=== PATIENT | female | born 1980 | race Caucasian/White ===

== ENCOUNTER 2016-08-21 15:56 | Emergency (ER) | payer OTHER ==
[2016-08-21 16:09] VITALS: BP 127/77
--- NOTE | 2016-08-21 16:20 | ED Physician Documentation ---
PD HPI FEMALE - Stated complaint Stated Complaint: post op ABD PX - Chief complaint Chief Complaint: Abd Pain - History obtained from History obtained from: Patient - History of Present Illness Timing - onset: Yesterday Timing - duration: Days (1) Timing - details: Gradual onset, Still present Associated symptoms: Dysuria, Urinary frequency Recently seen: Surgery (hysterectomy at [facility] 2 days ago.) Review of Systems Constitutional: denies: Fever, Chills Nose: denies: Rhinorrhea / runny nose, Congestion Throat: denies: Sore throat Cardiac: denies: Chest pain / pressure Respiratory: denies: Dyspnea, Cough PD PAST MEDICAL HISTORY - Past Medical History Cardiovascular: None Respiratory: None Neuro: None Endocrine/Autoimmune: None - Present Medications Home Medications: Ambulatory Orders Medication Instructions Recorded Confirmed Dextroamphetamine/Amphetamine 1 tab TID 08/21/16 08/23/16 [Adderall 15 mg Tablet] Ibuprofen 600 mg TID PRN 08/21/16 08/23/16 Phenazopyridine [Pyridium] 200 mg PO TID PRN #15 tablet 08/21/16 08/23/16 Sulfamethox/Trimeth 800/160 1 each PO BID #10 tablet 08/21/16 08/23/16 [Bactrim Ds 800/160] lamoTRIgine [LaMICtal] 25 mg DAILY 08/21/16 08/23/16 oxyCODONE [Roxicodone] 1 - 2 tab QID PRN 08/21/16 08/23/16 traZODone [Desyrel] 50 mg BID 08/21/16 08/23/16 - Allergies Allergies/Adverse Reactions: Allergies Allergy/AdvReac Type Severity Reaction Status Date / Time levofloxacin [From Levaquin] Allergy Hallucinati Verified 08/23/16 22:58 ons PD ED PE NORMAL - Vitals Vital signs reviewed: Yes - General General: Alert and oriented X 3, No acute distress, Well developed/nourished - Neck Neck: Supple, no meningeal sign, No adenopathy - Cardiac Cardiac: RRR, No murmur - Respiratory Respiratory: Clear bilaterally - Abdomen Abdomen: Normal bowel sounds, Soft, Non tender, Non distended, No organomegaly, Other (steri strips in place without signs of wound infection on abdomen. ) - Female Female : Deferred - Rectal Rectal: Deferred - Back Back: No CVA TTP - Derm Derm: Normal color, Warm and dry - Extremities Extremities: Normal ROM s pain, No edema, No calf tenderness / cord Results - Vitals Vitals: Oxygen O2 Source Room air - Labs Labs: Laboratory Tests 08/21/16 16:15 Urine Color YELLOW Urine Clarity CLEAR Urine pH 6.0 Ur Specific [place] <=1.005 Urine Protein NEGATIVE Urine Glucose (UA) NEGATIVE Urine Ketones NEGATIVE Urine Occult Blood MODERATE H Urine Nitrite NEGATIVE Urine Bilirubin NEGATIVE Urine Urobilinogen 0.2 (NORMAL) Ur Leukocyte Esterase SMALL H Urine RBC 0-5 Urine WBC 0-3 Ur Squamous Epith Cells MOD Squamous H Urine Bacteria Rare Ur Microscopic Review INDICATED Urine Culture Comments NOT INDICATED Departure - Departure Disposition: Home, Self Care Clinical Impression: Urinary tract infection Qualifiers: Urinary tract infection type: acute cystitis Condition: Stable Record reviewed to determine appropriate education?: Yes Instructions: ED UTI Cystitis Female Follow-Up: Elodia Oh ARNP [Primary Care Provider] - Prescriptions: Sulfamethox/Trimeth 800/160 [Bactrim Ds 800/160] 1 each PO BID #10 tablet Phenazopyridine [Pyridium] 200 mg PO TID PRN #15 tablet PRN Reason: Pain Comments: The urine does show signs of infection, so will treat with antibiotic. You can also use the phenazopyridine to help with symptoms for the first 1-2 days. Drink lots of fluids. Discharge Date/Time: 08/21/16 17:07
[2016-08-21 16:26] LABS: BILIRUBIN,URINE NEGATIVE (NEGATIVE)
[2016-08-21 16:29] LABS: UA w/ MICROSCOPIC CHARGE YES
[2016-08-21 16:31] LABS: UR CULTURE IF IND NOT INDICATED; WBC,URINE 0-3 /HPF (0-5)
[2016-08-21] MEDS ORDERED: SULFAMETH/TRIMETH DS 800/160 MG TABLET PO STA (16:39)
[2016-08-21] MEDS ORDERED: PHENAZOPYRIDINE 100 MG TABLET PO STA (16:39)
[2016-08-21] MEDS ORDERED: SULFAMETH/TRIMETH DS 800/160 MG TABLET PO ONE (16:58)
[2016-08-21] MEDS ORDERED: PHENAZOPYRIDINE 100 MG TABLET PO ONE (16:59)
== END 2016-08-21 17:07 | disposition home or self-care (01) ==
LOC: ED 15:56
DX: N30.00 Acute cystitis without hematuria (principal); Z90.710 Acquired absence of both cervix and uterus
CPT/HCPCS: 51798; 81001; 99283; A9270; 81003; 87086

== ENCOUNTER 2016-08-23 22:49 | Emergency (ER) | payer OTHER ==
[2016-08-23] MEDS ORDERED: SODIUM CHLORIDE 0.9% 1,000 ML IV STA (23:14)
[2016-08-23] MEDS ORDERED: HYDROmorphone 1 MG/ML SYRINGE IVP STA (23:14)
[2016-08-23] MEDS ORDERED: ONDANSETRON 4 MG/2 ML VIAL IVP STA (23:24)
[2016-08-23] MEDS ORDERED: HYDROmorphone 1 MG/ML SYRINGE ONE (23:25)
[2016-08-23] MEDS ORDERED: ONDANSETRON 4 MG/2 ML VIAL ONE (23:25)
[2016-08-23] MEDS ORDERED: SODIUM CHLORIDE 0.9% 1,000 ML IV ONE (23:25)
[2016-08-23 23:40] LABS: BASOPHILS % (AUTO) 0.3 %; EOSINOPHILS # (AUTO) 0.2 10^3/uL (0.0-0.7); EOSINOPHILS % (AUTO) 1.9 %; HCT - HEMATOCRIT 34.7 % (37.0-47.0); HGB - HEMOGLOBIN 12.4 g/dL (12.0-16.0); LYMPHOCYTES # (AUTO) 1.5 10^3/uL (1.5-3.5); LYMPHOCYTES % (AUTO) 18.1 %; MEAN CORPUSCULAR HEMOGLOBIN 32.9 pg (27.0-31.0); MEAN CORPUSCULAR HGB CONC 35.6 g/dL (32.0-36.0); MEAN CORPUSCULAR VOLUME 92.5 fL (81.0-99.0); MEAN PLATELET VOLUME 8.2 fL (7.9-10.8); MONOCYTES # (AUTO) 0.5 10^3/uL (0.0-1.0); MONOCYTES % (AUTO) 6.4 %; NEUTROPHILS % (AUTO) 73.3 %; RED BLOOD COUNT 3.75 10^6/uL (4.20-5.40); RED CELL DISTRIBUTION WIDTH 12.2 % (12.0-15.0); UNCORRECTED WHITE BLOOD COUNT 8.2 x10^3/uL; WHITE BLOOD COUNT 8.2 x10^3/uL (4.8-10.8)
[2016-08-23 23:41] LABS: ALBUMIN/GLOBULIN RATIO 1.3 (1.0-2.2); BILIRUBIN,TOTAL 0.5 mg/dL (0.2-1.0); CALCIUM 8.5 mg/dL (8.5-10.3); CREATININE 0.8 mg/dL (0.4-1.0); POTASSIUM 3.7 mmol/L (3.5-5.0); TOTAL PROTEIN 6.7 g/dL (6.7-8.2)
[2016-08-24 00:01] LABS: BILIRUBIN,URINE NEGATIVE (NEGATIVE)
[2016-08-24 00:10] LABS: UA w/ MICROSCOPIC CHARGE YES; UR CULTURE IF IND NOT INDICATED; WBC,URINE 0-3 /HPF (0-5)
[2016-08-24] MEDS ORDERED: IOPAMIDOL-300 100 ML VIAL IVP ONE (00:36)
[2016-08-24] MEDS ORDERED: ONDANSETRON 4 MG/2 ML VIAL IVP STA ×2 (00:59→01:52)
[2016-08-24] MEDS ORDERED: ONDANSETRON 4 MG/2 ML VIAL ONE ×2 (01:03→01:57)
--- NOTE | 2016-08-24 01:43 | CT Report ---
EXAM: CT ABDOMEN AND PELVIS EXAM DATE: 08/24/2016 12:43 AM. CLINICAL HISTORY: Post-operative pain. COMPARISONS: None. TECHNIQUE: Routine helical CT imaging was performed through the abdomen and pelvis. IV contrast: 100 cc Isovue-370. Enteric contrast: No. Reconstructions: Coronal and sagittal. In accordance with CT protocol optimization, one or more of the following dose reduction techniques w ere utilized for this exam: automated exposure control, adjustment of mA and/or KV based on patient s ize, or use of iterative reconstructive technique. FINDINGS: Lung Bases: Unremarkable. Liver: Normal. No masses. Gallbladder/Bile Ducts: Unremarkable. Spleen: Normal. Pancreas: Normal. Adrenal Glands: Normal. Kidneys: Normal. No masses or hydronephrosis. Peritoneal Cavity/Bowel: Extensive peritoneal inflammation and stranding is noted throughout the pelv is. Pneumoperitoneum is seen in the abdomen and pelvis. Overall, the degree of pneumoperitoneum is sl ightly more intimately seen for a postoperative patient on day 5. Peritoneal enhancement is noted throughout the bowel located in the pelvis. Large bowel contains s tool and fluid. No definite bowel dilation to suggest obstruction. Normal appendix. No pathologic loly nopathy is noted. No abscess is noted. Pelvic Organs: Fluid is present in the anterior portion of the bladder. Extensive pelvic inflammatory changes are noted. Uterus is absent. No abscess is noted. Vasculature: No aneurysms or other significant abnormality. Bones: No significant abnormality. Other: Subcutaneous emphysema seen in the anterior abdominal wall. IMPRESSION: 1. Pneumoperitoneum mildly greater than expected for a patient at this stage. Extensive pelvic perito сергей stranding and a small amount of fluid in the pelvis without an abscess. Constellation of finding s could be post operative inflammation. However, a small bowel injury not excluded. However, the so urce of bowel injury is not seen on current CT. Specifically not wall discontinuity or wall thickenin g seen. 2. Status post hysterectomy. 3. Normal appendix. [facility] The above critical findings were discussed with Tom by Dr. Hilary Givens at 01:39 hrs on 7. Referring Provider Line: [phone] SITE ID: [id number]
[2016-08-24] MEDS ORDERED: HYDROmorphone 1 MG/ML SYRINGE IVP STA (01:52)
[2016-08-24] MEDS ORDERED: HYDROmorphone 1 MG/ML SYRINGE ONE (01:57)
[2016-08-24] MEDS ORDERED: PANTOPRAZOLE 40 MG VIAL IVP STA (02:15)
[2016-08-24] MEDS ORDERED: SODIUM CHLORIDE 0.9% 1,000 ML IV STA (02:15)
[2016-08-24] MEDS ORDERED: SODIUM CHLORIDE 0.9% 1,000 ML IV ONE (02:16)
[2016-08-24] MEDS ORDERED: PANTOPRAZOLE 40 MG VIAL ONE (02:16)
[2016-08-24 04:01] VITALS: BP 100/66
--- NOTE | 2016-08-24 08:08 | ED Physician Documentation ---
PD HPI ABD PAIN - Stated complaint Stated Complaint: VOMITING - Chief complaint Chief Complaint: Abd Pain - History obtained from History obtained from: Patient - History of Present Illness Timing - onset: Other (Friday, August 19) Timing - duration: Days Timing - details: Abrupt onset, Constant, Waxing and waning Pain level now: 6 Quality: Pain Location: All over / everywhere, Suprapubic Radiation: Lower back Improved by: Laying still Worsened by: Eating, Moving, Position, Palpation Associated symptoms: Nausea, Vomiting, Diarrhea. No: Fever Recently seen: Surgery - Additional information Additional information: underwent hysterectomy Friday (4 days ago) at [facility], c/o constant pain since then, unable to tolerate PO since last night due to increasing pain, nausea, and vomiting. She was T+R from this ED 2 days ago for UTI Review of Systems Constitutional: denies: Fever, Chills, Sweats Eyes: reports: Reviewed and negative Ears: reports: Reviewed and negative Nose: reports: Reviewed and negative Throat: reports: Reviewed and negative Cardiac: reports: Reviewed and negative Respiratory: reports: Reviewed and negative GI: reports: Abdominal Pain, Nausea, Vomiting, Diarrhea : denies: Dysuria, Frequency Skin: denies: Rash Musculoskeletal: reports: Back pain Neurologic: reports: Generalized weakness. 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 - Present Medications Home Medications: Ambulatory Orders Medication Instructions Recorded Confirmed Dextroamphetamine/Amphetamine 1 tab TID 08/21/16 08/23/16 [Adderall 15 mg Tablet] Ibuprofen 600 mg TID PRN 08/21/16 08/23/16 Phenazopyridine [Pyridium] 200 mg PO TID PRN #15 tablet 08/21/16 08/23/16 Sulfamethox/Trimeth 800/160 1 each PO BID #10 tablet 08/21/16 08/23/16 [Bactrim Ds 800/160] lamoTRIgine [LaMICtal] 25 mg DAILY 08/21/16 08/23/16 oxyCODONE [Roxicodone] 1 - 2 tab QID PRN 08/21/16 08/23/16 traZODone [Desyrel] 50 mg BID 08/21/16 08/23/16 - Allergies Allergies/Adverse Reactions: Allergies Allergy/AdvReac Type Severity Reaction Status Date / Time levofloxacin [From Levaquin] Allergy Hallucinati Verified 08/23/16 22:58 ons - Social History Does the pt smoke?: Yes Smoking Status: Current every day smoker Does the pt drink ETOH?: Yes Does the pt have substance abuse?: No - Immunizations Immunizations are current?: Yes - POLST Patient has POLST: No PD ED PE NORMAL - Vitals Vital signs reviewed: Yes - General General: Alert and oriented X 3, No acute distress, Well developed/nourished, Other (appears uncomfortable, painful distress) - HEENT HEENT: Moist mucous membranes - Neck Neck: Supple, no meningeal sign - Cardiac Cardiac: RRR, No murmur - Respiratory Respiratory: No respiratory distress, Clear bilaterally - Abdomen Abdomen: Soft, Non distended - Back Back: No CVA TTP - Derm Derm: Normal color, Warm and dry - Extremities Extremities: No edema PD ED PE EXPANDED - Abdomen Abdomen: Tender to palpation, Rebound, Guarding Results - Vitals Vitals: Vital Signs - 24 hr 08/23/16 08/23/16 08/24/16 22:56 23:41 00:42 Temperature 36.8 C Heart Rate 82 60 60 Respiratory 20 16 16 Rate Blood Pressure 118/75 110/60 98/53 L O2 Saturation 98 99 99 08/24/16 08/24/16 08/24/16 00:49 02:19 02:57 Temperature 36.9 C 37.1 C Heart Rate 63 63 65 Respiratory 15 14 16 Rate Blood Pressure 111/75 94/54 L 100/63 O2 Saturation 96 96 99 08/24/16 03:59 Temperature Heart Rate 64 Respiratory 16 Rate Blood Pressure 100/66 O2 Saturation 100 Oxygen O2 Source Room air - Labs Labs: Laboratory Tests 08/23/16 08/23/16 08/23/16 23:20 23:20 23:54 WBC 8.2 RBC 3.75 L Hgb 12.4 Hct 34.7 L MCV 92.5 MCH 32.9 H MCHC 35.6 RDW 12.2 Plt Count 157 MPV 8.2 Neut # 6.0 Lymph # 1.5 [place] # 0.5 Eos # 0.2 Baso # 0.0 Absolute Nucleated RBC 0.00 Nucleated RBCs 0.0 Sodium 137 Potassium 3.7 Chloride 104 Carbon Dioxide 26 Anion Gap 7.0 BUN 7 Creatinine 0.8 Estimated GFR (MDRD) 81 L Glucose 87 Calcium 8.5 Total Bilirubin 0.5 AST 23 ALT 19 Alkaline Phosphatase 48 Total Protein 6.7 Albumin 3.8 Globulin 2.9 Albumin/Globulin Ratio 1.3 Lipase 16 L Urine Color YELLOW Urine Clarity CLEAR Urine pH 7.0 Ur Specific [place] 1.015 Urine Protein NEGATIVE Urine Glucose (UA) NEGATIVE Urine Ketones TRACE Urine Occult Blood SMALL H Urine Nitrite POSITIVE H Urine Bilirubin NEGATIVE Urine Urobilinogen 0.2 (NORMAL) Ur Leukocyte Esterase TRACE H Urine RBC 0-5 Urine WBC 0-3 Ur Squamous Epith Cells MOD Squamous H Urine Bacteria None Seen Ur Microscopic Review INDICATED Urine Culture Comments NOT INDICATED - Rads (name of study) CT A/P Radiology: Prelim report reviewed, See rad report PD MEDICAL DECISION MAKING - ED course Complexity details: reviewed results, re-evaluated patient, considered differential, d/w patient ED course: D/W Dr. Connelly ([facility]), accepts patient for transfer to their facility Departure - Departure Disposition: 02 Transfer Acute Care Hosp Clinical Impression: Post-op pain Vomiting Qualifiers: Vomiting type: unspecified Vomiting Intractability: intractable Nausea presence : with nausea Qualified Code(s): R11.2 - Nausea with vomiting, unspecified Condition: Stable Discharge Date/Time: 08/24/16 04:01
== END 2016-08-24 04:01 | disposition short-term general hospital (02) ==
LOC: ED 22:49
DX: G89.18 Other acute postprocedural pain (principal); R11.2 Nausea with vomiting, unspecified; F17.200 Nicotine dependence, unspecified, uncomplicated; Z98.51 Tubal ligation status; Z90.710 Acquired absence of both cervix and uterus
CPT/HCPCS: 36415; 74177; 80053; 81001; 83690; 85025; 96361; 96374; 96375; 96376; 99285; J1170; Q9967; 81003; 87086; 99284

== ENCOUNTER 2017-02-11 08:56 | Outpatient (CLI) | payer OTHER | END 2017-02-11 08:57 | disposition critical access hospital (66) | LOC: EMS 08:56 | PROVIDERS: ATTEND Surgery | DX: R06.02 Shortness of breath (principal) | CPT/HCPCS: A0425; A0429 ==

== ENCOUNTER 2017-02-11 09:14 | Emergency (ER) | payer OTHER ==
--- NOTE | 2017-02-11 10:33 | ED Physician Documentation ---
History of Present Illness - Stated complaint Stated Complaint: SOA - Chief complaint Chief Complaint: Resp - Additonal information Additional information: hx from pt 36 healthy female not s/p hyst non smoker no travel SOA for a week no fever no cough no CP no leg edema worse with exertion also feels faint when shestands up and per EMS her HR jumps to 130 with standing no bloody BM or urine no hx same saw PMD for these sx, states no CXR, dx pna, rx albuterol and augmentin and she is not better Review of Systems Constitutional: denies: Fever, Chills Cardiac: denies: Chest pain / pressure, Palpitations Respiratory: reports: Dyspnea. 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 - Present Medications Home Medications: Ambulatory Orders Medication Instructions Recorded Confirmed Ibuprofen 600 mg PO TID PRN 08/21/16 02/11/17 lamoTRIgine [LaMICtal] 25 mg PO DAILY 08/21/16 02/11/17 Amoxicillin/Potassium Clav [Amox 1 each PO BID 02/11/17 02/11/17 Tr-K Clv 875-125 mg Tab] - Allergies Allergies/Adverse Reactions: Allergies Allergy/AdvReac Type Severity Reaction Status Date / Time levofloxacin [From Levaquin] Allergy Hallucinati Verified 08/23/16 22:58 ons - Social History Does the pt smoke?: No Smoking Status: Former smoker Does the pt drink ETOH?: Yes Does the pt have substance abuse?: No - Immunizations Immunizations are current?: Yes - POLST Patient has POLST: No PD ED PE NORMAL - Vitals Vital signs reviewed: Yes - General General: Alert and oriented X 3 - HEENT HEENT: PERRL - Neck Neck: Supple, no meningeal sign - Cardiac Cardiac: RRR - Respiratory Respiratory: No respiratory distress, Clear bilaterally - Abdomen Abdomen: Soft, Non tender - Derm Derm: Normal color - Extremities Extremities: No deformity, No tenderness to palpate, Normal ROM s pain, No calf tenderness / cord - Neuro Neuro: Alert and oriented X 3 Results - Vitals Vitals: Vital Signs - 24 hr 02/11/17 02/11/17 02/11/17 09:22 11:45 13:16 Temperature 36.6 C Heart Rate 95 77 75 Respiratory 18 11 L 18 Rate Blood Pressure 132/87 H 107/76 110/74 O2 Saturation 95 97 95 02/11/17 14:07 Temperature Heart Rate 79 Respiratory 19 Rate Blood Pressure 112/74 O2 Saturation 97 Oxygen O2 Source Room air - EKG (time done) 1019 Rate: Rate (enter#) Rhythm: NSR [place]: Normal Intervals: Normal [place] Ischemia: Normal ST segments Other comments: Other comments (low voltage) - Labs Labs: Laboratory Tests 02/11/17 02/11/17 02/11/17 10:40 10:40 10:40 WBC 5.5 RBC 4.59 Hgb 15.0 Hct 42.3 MCV 92.3 MCH 32.7 H MCHC 35.4 RDW 12.2 Plt Count 182 MPV 8.6 Neut # 3.4 Lymph # 1.5 [place] # 0.5 Eos # 0.1 Baso # 0.0 Absolute Nucleated RBC 0.00 Nucleated RBC % 0.0 D-Dimer 210.5 Sodium 138 Potassium 3.7 Chloride 99 L Carbon Dioxide 27 Anion Gap 12.0 BUN 15 Creatinine 0.8 Estimated GFR (MDRD) 81 L Glucose 95 Calcium 9.4 Troponin I 02/11/17 10:40 WBC RBC Hgb Hct MCV MCH MCHC RDW Plt Count MPV Neut # Lymph # [place] # Eos # Baso # Absolute Nucleated RBC Nucleated RBC % D-Dimer Sodium Potassium Chloride Carbon Dioxide Anion Gap BUN Creatinine Estimated GFR (MDRD) Glucose Calcium Troponin I < 0.04 - Rads (name of study) CXR Radiology: See rad report (NACPD) CTPA Radiology: See rad report (no PE, no effusion, no acute process) PD MEDICAL DECISION MAKING - ED course ED course: SOA weakness near syncope tachy with exertion not better with tx for resp infection ER work up - no anemic, EKG and trop no acute ischemia after days of sx and pt with no sig risk factors for CDA, CXR NACPD/ no pna pneumo enlarged heart,, not anemi, nl lytes but profoundly soa and tachy with exertion still unexplained will get CT - d dimer neg (but not PERC neg 2/2 tachy) - also would also show pericardial effusion, pna not see on CXR etc CTA neg too pt road tested s sx - not tachy hypochic faint or SOA HR fine now even with exertion - maybe was due to albuterol will reassure and dc to fup PMD for consideration of event monitor and maybe echo if sx persist Departure - Departure Disposition: Home, Self Care Clinical Impression: Dyspnea Qualifiers: Dyspnea type: unspecified Qualified Code(s): R06.00 - Dyspnea, unspecified Condition: Good Instructions: ED Dyspnea Shortness of Breath Follow-Up: Elodia Oh ARNP [Primary Care Provider] - Comments: All of the tests run in the ER were fine. The blood work and EKG do not indicate a heart problem. The xray and subsequent CT scan did not show any lung problems such as blood clots, pneumonia, fluid etc. There was no fluid around your heart either. You were not anemic. I am not sure why you are so short of breath recently or why your heart was racing earlier Given the reassuring work up in the ER, I do not think you need to be admitted to the hospital. But I am NOT saying nothing is wrong and I do think you should have further work up as an outpatient. Specifically I would suggest an ultrasound of your heart called an echocardiogram and a wear at home heart monitor. Please call to schedule with your PMD this week before the holidays. Return to the ER if new or different symptoms Forms: Activity restrictions
--- NOTE | 2017-02-11 10:44 | XRAY Preliminary Report ---
Exam: XR CHEST 2 VIEW PA/LAT IMPRESSION: Normal 2-view chest radiography. [facility] SITE ID: [id number]
--- NOTE | 2017-02-11 10:46 | XRAY Report ---
EXAM: CHEST RADIOGRAPHY EXAM DATE: 02/11/2017 10:34 AM. CLINICAL HISTORY: Soa weak tachy. COMPARISON: None. TECHNIQUE: 2 views. FINDINGS: Lungs/Pleura: No focal opacities evident. No pleural effusion. No pneumothorax. Normal volumes. Mediastinum: Heart and mediastinal contours are unremarkable. Other: None. IMPRESSION: Normal 2-view chest radiography. [facility] Referring Provider Line: [phone] SITE ID: [id number]
[2017-02-11 11:01] LABS: BASOPHILS % (AUTO) 0.5 %; EOSINOPHILS # (AUTO) 0.1 10^3/uL (0.0-0.7); EOSINOPHILS % (AUTO) 1.2 %; HCT - HEMATOCRIT 42.3 % (37.0-47.0); LYMPHOCYTES # (AUTO) 1.5 10^3/uL (1.5-3.5); LYMPHOCYTES % (AUTO) 27.5 %; MEAN CORPUSCULAR HEMOGLOBIN 32.7 pg (27.0-31.0); MEAN CORPUSCULAR HGB CONC 35.4 g/dL (32.0-36.0); MEAN CORPUSCULAR VOLUME 92.3 fL (81.0-99.0); MEAN PLATELET VOLUME 8.6 fL (7.9-10.8); MONOCYTES # (AUTO) 0.5 10^3/uL (0.0-1.0); MONOCYTES % (AUTO) 8.3 %; NEUTROPHILS # (AUTO) 3.4 10^3/uL (1.5-6.6); NEUTROPHILS % (AUTO) 62.5 %; RED BLOOD COUNT 4.59 10^6/uL (4.20-5.40); RED CELL DISTRIBUTION WIDTH 12.2 % (12.0-15.0); UNCORRECTED WHITE BLOOD COUNT 5.5 x10^3/uL; WHITE BLOOD COUNT 5.5 x10^3/uL (4.8-10.8)
[2017-02-11 11:02] LABS: CALCIUM 9.4 mg/dL (8.5-10.3); CREATININE 0.8 mg/dL (0.4-1.0); POTASSIUM 3.7 mmol/L (3.5-5.0)
[2017-02-11] MEDS ORDERED: IOPAMIDOL-300 100 ML VIAL ONE (12:32)
[2017-02-11] MEDS ORDERED: IOPAMIDOL-300 100 ML VIAL IVP ONE (13:17)
--- NOTE | 2017-02-11 13:27 | CT Preliminary Report ---
Exam: CT CHEST ANGIO (PE) IMPRESSION: 1. Negative for acute pulmonary embolism. 2. No aneurysm or dissection. 3. Clear lungs. [facility] SITE ID: [id number]
--- NOTE | 2017-02-11 13:30 | CT Report ---
EXAM: CT ANGIOGRAM CHEST EXAM DATE: 02/11/2017 01:11 PM. CLINICAL HISTORY: Soa and tachycardia. COMPARISON: None. TECHNIQUE: Routine helical imaging was performed through the chest in the pulmonary arterial phase. I V Contrast: 80 cc Isovue 300 IV. Reconstructions: Coronal 3-D MIP reconstructions.Sagittal and cook l. In accordance with CT protocol optimization, one or more of the following dose reduction techniques w ere utilized for this exam: automated exposure control, adjustment of mA and/or KV based on patient s ize, or use of iterative reconstructive technique. FINDINGS: Pulmonary Arteries: Diagnostic quality: Adequate through the segmental arteries. No evidence for acute or chronic pulmona ry emboli. The main pulmonary artery is normal in size. Lungs/Pleura: No consolidation, nodules, or edema. No effusions or pneumothorax. Mediastinum: Normal. No cardiac enlargement or adenopathy. Thoracic Aorta: Unremarkable. Upper Abdomen: Unremarkable. Other: None. IMPRESSION: 1. Negative for acute pulmonary embolism. 2. No aneurysm or dissection. 3. Clear lungs. [facility] Referring Provider Line: [phone] SITE ID: [id number]
[2017-02-11 14:49] VITALS: BP 105/76
== END 2017-02-11 14:50 | disposition home or self-care (01) ==
LOC: EDUNIT# → ED 09:14
DX: R06.00 Dyspnea, unspecified (principal); Z87.891 Personal history of nicotine dependence
CPT/HCPCS: 36415; 71020; 71275; 80048; 84484; 85025; 85379; 93005; 99284; Q9967

== ENCOUNTER 2018-10-22 02:41 | Emergency (ER) | payer OTHER ==
[2018-10-22 03:01] LABS: BILIRUBIN,URINE NEGATIVE (NEGATIVE); GLUCOSE, URINE (UA) NEGATIVE (NEGATIVE); KETONES,URINE (UA) NEGATIVE (NEGATIVE); LEUKOCYTE ESTERASE, URINE SMALL (NEGATIVE); NITRITE,URINE POSITIVE (NEGATIVE); OCCULT BLOOD,URINE LARGE (NEGATIVE); PROTEIN,URINE >=300 mg/dL (NEGATIVE); UROBILINOGEN,URINE 0.2 (NORMAL) E.U./dL (NORMAL)
[2018-10-22 03:04] LABS: CLARITY,URINE CLOUDY (CLEAR)
[2018-10-22 03:10] LABS: BACTERIA,URINE Moderate /HPF (None Seen); RBC,URINE TNTC /HPF (0-5); SQUAMOUS EPITHELIAL CELL,UR FEW Squamous (<= Few)
--- NOTE | 2018-10-22 03:15 | ED Physician Documentation ---
PD HPI ABD PAIN - Stated complaint Stated Complaint: ABD PAIN - Chief complaint Chief Complaint: Abd Pain - History obtained from History obtained from: Patient - History of Present Illness Timing - onset: How many days ago (4-5) Timing - details: Gradual onset, Waxing and waning Pain level now: 8 Quality: Pain Location: Suprapubic Radiation: Right flank Improved by: Laying still Worsened by: Moving, Other (urinating) Associated symptoms: Dysuria. No: Fever, Nausea, Vomiting, Diarrhea, Constipation Recently seen: Not recently seen - Additional information Additional information: c/o 4-5 days of suprapubic pain/pressure, urinary frequency, and right flank and right back pain. Review of Systems Constitutional: denies: Fever, Chills, Sweats GI: reports: Abdominal Pain (suprapubic pain). 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 Cardiovascular: Other - Present Medications Home Medications: Ambulatory Orders Medication Instructions Recorded Confirmed lamoTRIgine [LaMICtal] 25 mg PO DAILY 08/21/16 02/11/17 Alprazolam [Xanax] 0.5 mg PO DAILY PRN 10/22/18 10/22/18 Amox/Clav 875/125 [Augmentin] 1 each PO Q12H #20 tablet 10/22/18 Oxycodone HCl/Acetaminophen 1 - 2 each PO Q6H PRN #14 tablet 10/22/18 [Percocet 5-325 mg Tablet] clonazePAM [KlonoPIN] 1 mg PO DAILY PRN 10/22/18 10/22/18 - Allergies Allergies/Adverse Reactions: Allergies Allergy/AdvReac Type Severity Reaction Status Date / Time levofloxacin [From Levaquin] Allergy Hallucinati Verified 10/22/18 02:47 ons - Social History Does the pt smoke?: No Smoking Status: Never smoker Does the pt drink ETOH?: Yes Does the pt have substance abuse?: No - Immunizations Immunizations are current?: Yes - POLST Patient has POLST: No PD ED PE NORMAL - Vitals Vital signs reviewed: Yes - General General: Alert and oriented X 3, Well developed/nourished, Other (obvious painful distress) - Cardiac Cardiac: No murmur - Respiratory Respiratory: No respiratory distress, Clear bilaterally - Abdomen Abdomen: Soft, Non distended - Derm Derm: Normal color, Warm and dry, No rash PD ED PE EXPANDED - Cardiac Cardiac: Tachy, Regular Rhythm - Abdomen Abdomen: Tender to palpation, Right abd, Suprapubic - Back Back: CVA TTP right Results - Vitals Vitals: Vital Signs - 24 hr 10/22/18 10/22/18 04:25 05:59 Temperature 2.7 C L Heart Rate 74 86 Respiratory 18 16 Rate Blood Pressure 101/61 110/76 O2 Saturation 95 100 Oxygen O2 Source Room air - Labs Labs: Microbiology 10/22/18 02:52 Urine Culture - Preliminary Urine,Clean Catch CULTURE IN PROGRESS. RESULTS TO FOLLOW. Laboratory Tests 10/22/18 10/22/18 10/22/18 02:52 03:40 03:40 WBC 9.5 RBC 4.24 Hgb 13.5 Hct 39.1 MCV 92.2 MCH 31.8 H MCHC 34.5 RDW 11.8 L Plt Count 195 MPV 10.2 Neut # (Auto) 7.4 H Lymph # (Auto) 1.3 L [place] # (Auto) 0.8 Eos # (Auto) 0.0 Baso # (Auto) 0.0 Absolute Nucleated RBC 0.00 Nucleated RBC % 0.0 Sodium 138 Potassium 3.8 Chloride 103 Carbon Dioxide 26 Anion Gap 9.0 BUN 9 Creatinine 0.8 Estimated GFR (MDRD) 80 L Glucose 110 H Calcium 9.3 Total Bilirubin 0.3 AST 17 ALT 17 Alkaline Phosphatase 71 Total Protein 7.2 Albumin 4.2 Globulin 3.0 Albumin/Globulin Ratio 1.4 Lipase 21 L Urine Color YELLOW Urine Clarity CLOUDY Urine pH 6.0 Ur Specific [place] >=1.030 H Urine Protein >=300 H Urine Glucose (UA) NEGATIVE Urine Ketones NEGATIVE Urine Occult Blood LARGE H Urine Nitrite POSITIVE H Urine Bilirubin NEGATIVE Urine Urobilinogen 0.2 (NORMAL) Ur Leukocyte Esterase SMALL H Urine RBC TNTC H Urine WBC >25 H Ur Squamous Epith Cells FEW Squamous Urine Bacteria Moderate H Ur Microscopic Review INDICATED Urine Culture Comments INDICATED - Rads (name of study) CT A/P Radiology: Prelim report reviewed, See rad report PD MEDICAL DECISION MAKING - ED course Complexity details: reviewed results, re-evaluated patient, considered differential, d/w patient ED course: Patient did not want pain medication that would preclude driving home, as she drove self to ED. She had adequate improvement with IV toradol. test results are c/w early right pyelonephritis Departure - Departure Disposition: Home, Self Care Clinical Impression: Pyelonephritis Condition: Good Instructions: ED Kidney Infec Female Follow-Up: Elodia Oh ARNP [Primary Care Provider] - (Friday as scheduled) Prescriptions: Amox/Clav 875/125 [Augmentin] 1 each PO Q12H #20 tablet Oxycodone HCl/Acetaminophen [Percocet 5-325 mg Tablet] 1 - 2 each PO Q6H PRN #14 tablet PRN Reason: pain Discharge Date/Time: 10/22/18 06:00
[2018-10-22] MEDS ORDERED: KETOROLAC 30 MG/ML VIAL IVP STA (03:31)
[2018-10-22] MEDS ORDERED: SODIUM CHLORIDE 0.9% 1,000 ML IV STA (03:31)
[2018-10-22 03:48] LABS: BASOPHILS % (AUTO) 0.4 %; EOSINOPHILS % (AUTO) 0.4 %; HGB - HEMOGLOBIN 13.5 g/dL (12.0-16.0); LYMPHOCYTES # (AUTO) 1.3 10^3/uL (1.5-3.5); LYMPHOCYTES % (AUTO) 13.3 %; MEAN CORPUSCULAR HEMOGLOBIN 31.8 pg (27.0-31.0); MEAN CORPUSCULAR HGB CONC 34.5 g/dL (32.0-36.0); MEAN CORPUSCULAR VOLUME 92.2 fL (81.0-99.0); MEAN PLATELET VOLUME 10.2 fL (7.9-10.8); MONOCYTES # (AUTO) 0.8 10^3/uL (0.0-1.0); MONOCYTES % (AUTO) 7.9 %; NEUTROPHILS # (AUTO) 7.4 10^3/uL (1.5-6.6); NEUTROPHILS % (AUTO) 77.6 %; PLT - PLATELET COUNT 195 10^3/uL (130-450); RED BLOOD COUNT 4.24 10^6/uL (4.20-5.40); RED CELL DISTRIBUTION WIDTH 11.8 % (12.0-15.0); WHITE BLOOD COUNT 9.5 x10^3/uL (4.8-10.8)
[2018-10-22] MEDS ORDERED: IOVERSOL 320 100 ML VIAL IVP ONE ×2 (03:53→04:31)
[2018-10-22 04:00] LABS: ALBUMIN 4.2 g/dL (3.2-5.5); ALBUMIN/GLOBULIN RATIO 1.4 (1.0-2.2); BILIRUBIN,TOTAL 0.3 mg/dL (0.2-1.0); CALCIUM 9.3 mg/dL (8.5-10.3); CREATININE 0.8 mg/dL (0.4-1.0); TOTAL PROTEIN 7.2 g/dL (6.7-8.2)
--- NOTE | 2018-10-22 04:46 | CT Report ---
Reason: RLQ pain, tenderness Procedure Date: 10/22/2018 Accession Number: [id number] / [id number] Procedure: CT - Abdomen/Pelvis W CPT Code: FULL RESULT: EXAM: CT ABDOMEN AND PELVIS EXAM DATE: 10/22/2018 04:29 AM. CLINICAL HISTORY: RLQ pain, tenderness. COMPARISONS: ABDOMEN/PELVIS W/ 08/24/2016 12:18 AM. TECHNIQUE: Routine helical CT imaging was performed through the abdomen and pelvis. IV contrast: OPTI 320 100ML. Enteric contrast: No. Reconstructions: Coronal and sagittal. In accordance with CT protocol optimization, one or more of the following dose reduction techniques were utilized for this exam: automated exposure control, adjustment of mA and/or KV based on patient size, or use of iterative reconstructive technique. FINDINGS: Lung Bases: Unremarkable. Liver: No focal abnormality seen. Gallbladder/Bile Ducts: Unremarkable. Spleen: Normal. Pancreas: Normal. Adrenal Glands: Normal. Kidneys: Slight fullness of the right renal pelvis and ureter compared with the left. Mild right periureteral stranding and urothelial enhancement. Left kidney and ureter are unremarkable. No stones are identified. Peritoneal Cavity/Bowel: No bowel obstruction seen. The colon is mostly collapsed and appears mildly thickened. No diverticulitis seen. No free air or free fluid. No lymphadenopathy seen. Appendix appears normal. Pelvic Organs: Uterus is not seen. Mild urinary bladder wall thickening. Vasculature: No aneurysms or other significant abnormality. Bones: No significant abnormality. Other: None. IMPRESSION: 1. Appendix appears normal. 2. Slight fullness of the right renal pelvis and ureter with periureteral stranding and mucosal enhancement. Mild urinary bladder wall thickening. Findings are probably due to infection. 3. Colon is mostly collapsed and appears mildly thickened. This may simply represent nondistention. Mild colitis also in the differential diagnosis. [facility]
[2018-10-22] MEDS ORDERED: oxyCODONE/ACET 5/325 Prepack 4 PO STA (05:18)
[2018-10-22] MEDS ORDERED: cefTRIAXone 1 GM in SODIUM CHLORIDE 0.9% MINIBAG 100 ML IV STA (05:18)
[2018-10-22 06:00] VITALS: BP 110/76
== END 2018-10-22 06:00 | disposition home or self-care (01) ==
LOC: ED 02:41
DX: N12 Tubulo-interstitial nephritis, not specified as acute or chronic (principal)
CPT/HCPCS: 36415; 74177; 80053; 81001; 83690; 85025; 87086; 87181; 96361; 96365; 96375; 99284; Q9967; 81003